=== PATIENT | male | born 1975 | race Caucasian/White ===

== ENCOUNTER 2016-10-20 22:07 | Emergency (ER) | payer OTHER ==
[~2016-10-20] VITALS: Ht 172.7 cm; Wt 104.3 kg
[2016-10-20 22:32] LABS: HEMOGLOBIN 15.7 g/dL (14.1-18.0); LYMPH # 1.8 K/mm3 (0.7-4.5); LYMPH % 14.2 % (10-50)
--- NOTE | 2016-10-20 22:32 | Emergency Room Report ---
History of Present Illness Time Seen by [id number] Presenting Problem in Triage Pt arrived:Walked Presenting Problem:C/O LEFT FLANK PAIN SINCE THIS AFTERNOON. HX KIDNEY STONES.C/ O NAUSEA/ VOMITING Onset of symptoms date/time:10/20/16/ or onset unknown for:MEDICAL HX UNKNOWN Treatment Prior to Arrival: [employer] Provided by: Sepsis Risk Assessment: Temp: 98.8 B/P: 160/95 MAP: 116 Pulse: 58 Resp: 20 Recent fever? N Clinical Suspician of Infection? N Mental Status: 1 - Regular (Normal Baseline) Sepsis Risk:Low Sepsis Risk Have you (or family members/close friends) recently traveled outside the [place]? N If Yes, where/when: Have you had exposure to infectious disease within the past month? N TB? Other? Specify: Source patient, RN notes reviewed, family, old records Exam Limitations no limitations Comment hx of kidney stone - acute lt flank pain which started today with vomiting but no fever Cardiac Chest Pain Chest pain indicative of cardiac No Timing/Duration this evening Severity moderate ALLERGIES Coded Allergies: No Known Allergies (10/20/16) History Medical History General CAD? No Angina: No [place]: No Hypertension? No Hyperlipidemia? No CHF? No DVT? No PE? No COPD? No Asthma? No Anemia? No GERD? No Gastric ulcers? No GI Bleed? No Hernia? No Thyroid Problems? No Hypothyroidism? No CVA? No Seizures? No Diabetes? No Renal Insuffiency? No End Stage Renal Disease? No UTI? No Stones? Yes BPH? No GB Disease: No Nephritic Syndrome? No Asplenia? No Hepatitis? No Sickle Cell Disease? No Arthritis? No Migraines? No Cataracts? No Glaucoma? No MRSA? No HIV? No TB? No Anxiety? No Depression? No Cancer? No Immunization Hx DT/Tetanus Unknown Surgical Hx Previous Surgery?N Social History Smoking Hx Smoker: Former Smoker Tobacco: No Alcohol Alcohol: Yes Drugs none Review of Systems All Other Systems Reviewed and Negative Constitutional denies fever Eyes denies drainage ENT denies: ear pain, epistaxis, throat pain. Respiratory denies cough, denies shortness of breath, denies wheezing Cardiovascular denies chest pain, denies palpitations, denies syncope Gastrointestinal see HPI, abdominal pain, nausea, vomiting Genitourinary denies: dysuria, frequency, hesitancy, hematuria. Musculoskeletal denies back pain, denies joint pain, denies joint swelling, denies neck pain Skin denies rash Psychiatric/Neurological denies headache, denies seizure Physical Exam Vital Signs Vital Signs Date Time Temp Pulse Resp B/P Pulse O2 O2 Flow FiO2 Ox Delivery Rate 10/20 2341 20 10/20 2306 58 20 148/75 96 10/20 2237 20 10/20 2222 98.8 58 20 160/95 96 - WBC >12,000 or <4,000 or 10% bands? 2 or more SIRS Criteria Met? B/P:148/75 MAP:116 Creatinine >2.0? UA output<0.5ml/kg/hr for 2 hrs? Platelet count >100,000? Lactate >2.0mmol/1? INR >1.2 or PTT > than 60 sec? Evidence of Organ Dysfunction? Provider documented clinical suspician of infection? N Sepsis Criteria Count: 1 Sepsis Risk: Low Sepsis Risk General Appearance no apparent distress Eye Exam - bilateral eye PERRL, bilateral eye EOMI Ear, Nose, Throat normal ENT inspection Neck supple Respiratory Status No: respiratory distress. Cardiovascular regular rate/rhythm Peripheral Pulses Pulses normal Yes Extremities normal inspection Strength 4 Upper Ext (L), 4 Upper Ext (R), 4 Lower Ext (L), 4 Lower Ext (R) Neurologic alert, long term care social worker II-XII nml as tested, no motor/sensory deficits Reflexes Reflexes normal No Mental status normal mood/affect Skin no rash cons.w/shingles Medical Decision Making LABS/Meds/Orders Pt receiving controlled substance in ED? No Results/Orders Laboratory Tests 10/20/162225: Sodium 143, Potassium 3.4 L, Chloride 105, Carbon Dioxide 28, BUN 14, Creatinine 1.3, Estimated Creat Clear 111, Estimated GFR (MDRD) 61, Glucose 156 H, Calcium 8.5, Total Bilirubin 0.4, AST 72 H, ALT 156 H, Alkaline Phosphatase 107, Total Protein 7.8, Albumin 4.2, Globulin 3.6 H, Albumin/Globulin Ratio 1.2 , WBC 12.4 H, RBC 4.98, Hgb 15.7, Hct 46.0, MCV 92.4, RDW 12.9, Plt Count 212, MPV 8.6, Gran % 78.3, Gran # 9.7 H, Lymphocytes % 14.2, Monocytes % 6.8, Eosinophils % 0.3, Basophils % 0.4, Lymphocytes # 1.8, Monocytes # 0.8, Eosinophils # 0.0, Basophils # 0.1, PUBS MCHC 34.2, MCH 31.6 H, Urine Color YELLOW, Urine Appearance CLEAR, Urine pH 6.0, Ur Specific [place] >= 1.030, Urine Protein TRACE H, Urine Ketones NEGATIVE, Urine Blood 3+ H, Urine Nitrate NEGATIVE, Urine Bilirubin NEGATIVE, Urine Urobilinogen 0.2, Ur Leukocyte Esterase NEGATIVE, Urine RBC 10-20, Urine WBC 3-5, Calcium Oxalate Crystal 1+, Urine Bacteria 1+, Urine Glucose NEGATIVE Current Medication Orders Sig/[place] Start time Last Medication Dose Route Stop Time Status Admin Promethazine HCl 0 .STK-MED ONE 10/21 2335 DC .ROUTE Sodium Chloride 25 ML .STK-MED ONE 10/21 2335 DC IV Tamsulosin HCl 0 .STK-MED ONE 10/21 2335 DC PO Hydromorphone HCl 0 .STK-MED ONE 10/20 2334 DC .ROUTE Hydromorphone HCl 1 MG ONCE ONE 10/20 2329 DC 10/20 IV 10/20 2331 2341 Promethazine HCl 12.5 MG ONCE ONE 10/20 2329 DC 10/20 IV 10/20 2331 2342 Sodium Chloride 25 ML ONCE ONE 10/20 2329 DC 10/20 IV 10/20 2344 2342 Tamsulosin HCl 0.4 MG ONCE ONE 10/20 2330 DC 10/20 PO 10/20 2331 2342 Ketorolac 30 MG ONCE ONE 10/20 2245 DC 10/20 Tromethamine IV 10/20 2245 223 Ondansetron HCl 4 MG ONCE ONE 10/20 2244 DC 10/20 IV 10/20 2245 223 Ketorolac 0 .STK-MED ONE 10/20 2234 DC Tromethamine .ROUTE Ondansetron HCl 0 .STK-MED ONE 10/20 2232 DC .ROUTE Sodium Chloride 10 ML PRN PRN 10/20 2214 AC IV 10/21 2208 Orders Procedure Date/time Status DIET-NOTHING BY MOUTH 10/[address] ABD & PELVIS W/O CONTRAST 10/[address] SCAN REQ 10/20 2209 Complete IV SALINE LOCK 10/20 2209 Active URINALYSIS/COMPLETE 10/20 2209 Complete COMPLETE METABOLIC PANEL 10/20 2209 Complete CBC WITH AUTO DIFF 10/20 2209 Complete XRAY/CT/US XRAY/CT/US CT abdomen, pelvis CT interpretation by discussed w/radiologist Time results known: 2313 CT Results abnormal (lt stone 4.3) Departure Departure Time of Disposition 2313 Disposition DC Home or Self Care(routine) Clinical Impression Primary Impression: Kidney stone on left side Condition STABLE Patient Instructions DI for Kidney Stones Additional Instructions see pcp and urologist for follow up Discharge Counseling Counseled pt/family regarding diagnosis, test results, medications/RX, follow up needs ED Critical Care Critical Care No at 1134
[2016-10-20 22:35] LABS: URINE BILIRUBIN - DIPSTICK NEGATIVE (NEG); URINE BLOOD 3+ (NEG)
[2016-10-21 00:07] VITALS: BP 129/81
--- NOTE | 2016-10-21 06:08 | RADIOLOGY REPORT PS360 ---
CT ABD PELVIS W/O CONTRAST CLINICAL INDICATION: Left flank pain FLANK PAIN ORDERING PHYSICIAN: Amy Norris MD PATIENT AGE: 41 years COMPARISON: None TECHNIQUE: Axial images obtained with sagittal and coronal reformats. PROCEDURE: Oral Contrast: None IV Contrast: None . FINDINGS: There are mild atelectatic changes in the right lung base. There is diffuse hepatic steatosis. No radio opaque gallstones. Spleen, adrenal glands, and pancreas have an unremarkable unenhanced CT appearance. Mild to moderate left hydronephrosis and proximal hydroureter secondary to an 8 mm stone in the mid left ureter which is at the L4 level. There is mild stranding of the periureteral fat. No evidence of appendicitis or diverticulitis. No intestinal obstruction or free air. No pelvic mass or abnormal fluid collection. No acute bony anomalies. IMPRESSION: 8 mm left mid ureteral stone with moderate hydroureteronephrosis
== END 2016-10-21 00:14 | disposition home or self-care (01) ==
LOC: ER 22:07
PROVIDERS: Emergency Medicine
DX: N20.0 Calculus of kidney (principal); Z87.891 Personal history of nicotine dependence
CPT/HCPCS: J2405